=== PATIENT | female | born 1965 | race Caucasian/White ===

== ENCOUNTER 2017-11-22 17:09 | Emergency (ER) | payer BC ==
[~2017-11-22] VITALS: Ht 172.7 cm; Wt 79.4 kg
[2017-11-22 17:14] VITALS: BP_SYST 142
[2017-11-22 17:47] VITALS: BP_SYST 138
== END 2017-11-22 17:49 | disposition home or self-care (01) ==
LOC: SED 17:09
DX: S00.86XA Insect bite (nonvenomous) of other part of head, initial encounter (principal); L03.211 Cellulitis of face; R03.0 Elevated blood-pressure reading, without diagnosis of hypertension; Z88.6 Allergy status to analgesic agent; Z88.5 Allergy status to narcotic agent; Z90.89 Acquired absence of other organs; Z85.41 Personal history of malignant neoplasm of cervix uteri; Z85.42 Personal history of malignant neoplasm of other parts of uterus; W57.XXXA Bitten or stung by nonvenomous insect and other nonvenomous arthropods, initial encounter; Y93.89 Activity, other specified; Y92.89 Other specified places as the place of occurrence of the external cause; Y99.8 Other external cause status
CPT/HCPCS: 99283